=== PATIENT | female | born 1955 | race Caucasian/White ===

== ENCOUNTER 2020-05-15 22:31 | Emergency (ER) | payer MEDICARE ==
[2020-05-15] MEDS ORDERED: OXYMETAZOLINE HCL SPRAY 15 ML BOTTLE ONE (22:44)
== END 2020-05-15 23:49 | disposition home or self-care (01) ==
LOC: EDH 22:31
DX: R04.0 Epistaxis (principal); M62.830 Muscle spasm of back; I10 Essential (primary) hypertension; M79.7 Fibromyalgia